=== PATIENT | female | born 1950 | race Caucasian/White ===

== ENCOUNTER 2017-10-23 18:20 | Emergency (ER) | payer SELFPAY ==
[2017-10-23] MEDS ORDERED: Acetaminophen 500 MG TAB ONE (19:37)
--- NOTE | 2017-10-23 21:14 | RAD ---
TWO VIEWS CHEST 10/23/17 HISTORY: Fever and chills. PA and lateral views of the chest is obtained. Mild cardiomegaly is seen. No evidence of effusions, pneumonia, or pneumothorax seen. IMPRESSION: Cardiomegaly. POS: [facility]
[2017-10-23 22:40] LABS: Bilirubin Small (Negative); Blood, Urine Moderate (Negative); Glucose, Urine (Dipstick) Negative (Negative); Ketone, Urine Trace mg/dL (Negative); Nitrite Negative (Negative); Protein, Urine (Dipstick) 300 mg/dL (Neg-Trace)
[2017-10-23 22:42] LABS: Bacteria/HPF 4+ HPF (None Seen)
[2017-10-23] MEDS ORDERED: cefTRIAXone\\ROCEPHIN 2 GM in Sodium Chloride 0.9% 100 ML IVPB SCH (23:30)
== END 2017-10-24 00:16 | disposition home or self-care (01) ==
LOC: ERS 18:20
DX: N12 Tubulo-interstitial nephritis, not specified as acute or chronic (principal)
CPT/HCPCS: 51701; 71020; 81003; 81015; 87077; 87086; 87186; 96361; 96365; A4353; J0696; J7050